=== PATIENT | female | born 1935 | race Caucasian/White ===

== ENCOUNTER 2018-07-20 21:44 | Emergency (ER) | payer BC, MEDICARE ==
[~2018-07-20] VITALS: Ht 157.5 cm; Wt 70.0 kg
--- NOTE | 2018-07-20 22:10 | NUR ---
PT. TO ED WITH C/O LEFT LEG PAIN AFTER A FALL IN THE BATHTUB ABOUT 2 WEEKS AGO. PT. REPORTS PAIN HAS BEEN GETTING INCREASINGLY WORSE. FAMILY AT BS FOR SUPPORT. CALL LIGHT IN REACH. WARM BLANKET PROVIDED. DR. FINNEY AT BS FOR EVAL.
[2018-07-20] MEDS ORDERED: KETOROLAC 30 MG/1 ML ONE (22:28)
[2018-07-20] MEDS ORDERED: MORPHINE SULFATE 4 MG/ML, 1ML ONE (22:28)
[2018-07-20] MEDS ORDERED: SODIUM CHLORIDE FLUSH 10ML SYR IVF ONE (22:30)
[2018-07-20] MEDS ORDERED: KETOROLAC 30 MG/1 ML IV ONE (22:30)
[2018-07-20] MEDS: MORPHINE SULFATE 4 MG/ML, 1ML IVPush PRN (22:31)
--- NOTE | 2018-07-20 22:36 | NUR ---
PT. HAS BEEN MEDICATED PER MAY FOR 12/23 LEFT HIP/KNEE PAIN WITH MOVEMENT. PT. PLACED ON 2L O2 NC AFTER MORPHINE ADMIN PT. GOING TO X-RAY VIA [facility] AT THIS TIME.
--- NOTE | 2018-07-21 00:07 | NUR ---
PT. REPORTS PAIN IS "MUCH BETTER" AFTER MEDS AND IS TO CT VIA [facility] NOW.
[2018-07-21] MEDS ORDERED: ONDANSETRON 2MG/ML, 2ML ONE (00:22)
--- NOTE | 2018-07-21 00:28 | NUR ---
PT. BACK FROM CT AND NOW C/O NAUSEA AND "NOT FEELING WELL". NEW ORDERS RECEIVED AND PT. MEDICATED PER MAY. VS UPDATED. PT. REQUESTING MORE PAIN MEDS PAIN IS NOW "BACK UP TO A 12/23".
[2018-07-21] MEDS ORDERED: ONDANSETRON 2MG/ML, 2ML IVPush ONE (00:30)
[2018-07-21] MEDS ORDERED: MORPHINE SULFATE 4 MG/ML, 1ML ONE (00:39)
[2018-07-21] MEDS: MORPHINE SULFATE 4 MG/ML, 1ML IVPush PRN (00:43)
--- NOTE | 2018-07-21 00:46 | NUR ---
CHART UP FOR RECHECK BY [facility] AT THIS TIME.
[2018-07-21] MEDS ORDERED: ONDANSETRON ODT 4 MG ONE (01:16)
[2018-07-21] MEDS ORDERED: ONDANSETRON ODT 4 MG PO ONE (01:30)
--- NOTE | 2018-07-21 01:30 | NUR ---
PT. WAS ABLE TO AMBULATE TO D/C DESK WITH ASSISTANCE BY HER SON WITHOUT C/O PAIN. PT. HAD SMALL AMOUNT OF EMESIS AFTER THIS; PT. ASSISTED INTO W/C AND TAKEN BACK TO ROOM. NEW ORDERS RECEIVED FROM DR. FINNEY AND PT. MEDICATED PER MAY. AT TIME OF D/C PT. REPORTS FEELING BETTER AND READY TO GET HOME. TOÑO.
[2018-07-21 01:32] VITALS: BP 148/76
== END 2018-07-21 01:34 | disposition home or self-care (01) ==
LOC: ED 07-21 01:11
DX: S39.012A Strain of muscle, fascia and tendon of lower back, initial encounter (principal); W01.0XXA Fall on same level from slipping, tripping and stumbling without subsequent striking against object, initial encounter; Y93.89 Activity, other specified; Y92.89 Other specified places as the place of occurrence of the external cause; Y99.8 Other external cause status
CPT/HCPCS: 72110; 72192; 73502; 73564; 96374; 96375; 96376; 99284; J1885; J2405; Q0162